=== PATIENT | female | born 1945 | race African-American/Black ===

== ENCOUNTER 2022-02-16 11:04 | Emergency (ER) | payer OTHER ==
[~2022-02-16] VITALS: Ht 172.7 cm; Wt 68.0 kg
[2022-02-16 11:10] VITALS: BP_SYST 136
[2022-02-16] MEDS ORDERED: GASTROGRAFIN 120 ML ONE (11:52)
--- NOTE | 2022-02-16 12:48 | NUR ---
PT IN RADIOLOGY
== END 2022-02-16 13:30 | disposition home or self-care (01) ==
LOC: SED 11:04
DX: K94.23 Gastrostomy malfunction (principal); Z79.899 Other long term (current) drug therapy
CPT/HCPCS: 99283; 74240; Q9963